=== PATIENT | female | born 1970 | race Caucasian/White ===

== ENCOUNTER 2022-10-08 18:24 | Emergency (ER) | payer BC ==
[2022-10-08] MEDS ORDERED: Proparacaine 0.5% Ophth Soln 15 ML Bottle EYERT ONE (18:36)
[2022-10-08] MEDS ORDERED: Dexamethasone/Tobramycin 0.1-0.3% Ophth Susp 2.5 ML Bottle ONE (19:40)
== END 2022-10-08 19:35 | disposition home or self-care (01) ==
LOC: JP.ED 18:24
DX: T65.891A Toxic effect of other specified substances, accidental (unintentional), initial encounter (principal); T26.91XA Corrosion of right eye and adnexa, part unspecified, initial encounter; S05.01XA Injury of conjunctiva and corneal abrasion without foreign body, right eye, initial encounter; H11.31 Conjunctival hemorrhage, right eye; Z88.1 Allergy status to other antibiotic agents
CPT/HCPCS: 99283; A9270-GY

== ENCOUNTER 2022-11-03 10:22 | Emergency (ER) | payer BC ==
[2022-11-03 11:31] LABS: HEMATOCRIT 41.7 % (34.3-46.0); HEMOGLOBIN 14.5 g/dL (11.2-15.5); MEAN CORPUSCULAR HEMOGLOBIN 31.7 pg (31.6-35.5); MEAN CORPUSCULAR HGB CONC 34.8 g/dL (31.6-35.5); MEAN CORPUSCULAR VOLUME 91.2 fL (81.4-99.0); RED BLOOD CELL COUNT 4.57 M/uL (3.77-5.24); WHITE BLOOD CELL COUNT,WBC 3.5 K/uL (3.2-11.0)
[2022-11-03 11:49] LABS: BLOOD UREA NITROGEN,BUN 9 mg/dL (7-18); CALCIUM 9.6 mg/dL (8.5-10.1); CARBON DIOXIDE,CO2 30 mmol/L (21-32); CHLORIDE,CL 103 mmol/L (100-108); CREATININE 0.7 mg/dL (0.6-1.0); ESTIMATED GFR 103 mL/min (>60); GLUCOSE RANDOM 95 mg/dL (74-106); POTASSIUM,K 4.4 mmol/L (3.6-5.2); SODIUM,NA 139 mmol/L (140-148)
[2022-11-03 12:00] LABS: ANION GAP 10.4 mmol/L (5.0-14.0)
== END 2022-11-03 12:16 | disposition home or self-care (01) ==
LOC: JP.ED 10:22
DX: G43.909 Migraine, unspecified, not intractable, without status migrainosus (principal); Z88.1 Allergy status to other antibiotic agents
CPT/HCPCS: 36415; 80048; 85027; 99284

== ENCOUNTER 2023-07-21 14:03 | Emergency (ER) | payer BC ==
[2023-07-21] MEDS: Ibuprofen 400 MG Tab PO ONE (15:40)
== END 2023-07-21 16:20 | disposition home or self-care (01) ==
LOC: JP.ED 14:03
DX: S20.219A Contusion of unspecified front wall of thorax, initial encounter (principal); S20.229A Contusion of unspecified back wall of thorax, initial encounter; Z88.1 Allergy status to other antibiotic agents; W01.0XXA Fall on same level from slipping, tripping and stumbling without subsequent striking against object, initial encounter
CPT/HCPCS: 71046; 71046-26; 99284; A9270-GY